=== PATIENT | male | born 1995 | race American Indian/Alaskan Native ===

== ENCOUNTER 2019-10-26 04:16 | Emergency (ER) | payer SELFPAY ==
[2019-10-26 05:14] LABS: Basophils # (Auto) 0.1 K/mm3 (0.0-0.1); Basophils % (Auto) 0.8 % (0.0-1.8); Eosinophils % (Auto) 0.6 % (0.0-4.3); Hemoglobin 13.6 gm/dl (11.8-15.2); Lymphocytes # (Auto) 0.4 K/mm3 (1.2-5.4); Lymphocytes % (Auto) 6.9 % (13.4-35.0); Mean Corpuscular HGB Conc 33 % (32-34); Mean Corpuscular Volume 87 fl (84-94); Monocytes # (Auto) 0.6 K/mm3 (0.0-0.8); Monocytes % (Auto) 10.1 % (0.0-7.3); Platelet Count 207 K/mm3 (140-440); Red Blood Count 4.72 M/mm3 (3.65-5.03); Red Cell Distribution Width 13.7 % (13.2-15.2)
[2019-10-26] MEDS ORDERED: KETOROLAC 30 MG/1 ML INJ IM ONE (05:23)
[2019-10-26] MEDS ORDERED: FAMOTIDINE 20 MG TAB PO ONE (05:23)
[2019-10-26] MEDS ORDERED: BUTALB/ACETAMINOPHEN/CAFFEINE TAB PO ONE (05:23)
[2019-10-26] MEDS ORDERED: ONDANSETRON 4 MG ODT TAB PO ONE (05:23)
[2019-10-26 05:26] LABS: Alanine Aminotransferase 26 units/L (7-56); Albumin 4.9 g/dL (3.9-5); BUN/Creatinine Ratio 8; Blood Urea Nitrogen 8 mg/dL (9-20); Calcium 9.3 mg/dL (8.4-10.2); Hemolysis Index 13
[2019-10-26 05:38] LABS: Bilirubin,Urine NEG (Negative); Blood,Urine NEG (Negative); Color,Urine Yellow (Yellow); Mucus,Urine FEW /HPF; Protein,Urine <15 mg/dL mg/dL (Negative); Urobilinogen,Urine < 2.0 mg/dL (<2.0)
--- NOTE | 2019-10-26 06:34 | Emergency Department Report ---
ED N/V/D HPI - General Chief complaint: Abdominal Pain Stated complaint: HEADACHE, BODY PAIN, ABD PAIN Source: patient, family Mode of arrival: Ambulatory Limitations: No Limitations - History of Present Illness Initial comments: Patient is a 24-year-old -[place] male with no past medical history presents to the ED with acute onset persistent intermittent nausea and vomiting, mild epigastric discomfort, persistent headache and diffuse body aches and pains for the last 4 hours. Patient states that the last meal he ate was over 10 hours ago and that it was a sandwich at a grocery store. Patient denies fever, chills, diarrhea dizziness, sore throat, nasal and sinus congestion, chest pain or shortness of breath, dysuria or urinary frequency and urgency. MD complaint: nausea, vomiting, abdominal pain (epigastric discomfort), other (headache; body aches) -: Sudden, hour(s) (4) Description of Vomiting: food contents, watery, bilious Associated Abdominal Pain: Yes (mild epigastric discomfort) Location: epigastric Radiation: none Pain Scale: 5 Quality: aching, dull Consistency: intermittent Improves with: none Worsens with: vomiting Context: possible food poisoning Associated Symptoms: denies other symptoms, myalgias, headaches, loss of appetite, malaise, nausea/vomiting. denies: chest pain, cough, diaphoresis, fever/chills, rash, dysuria, shortness of breath, syncope, weakness - Related Data Previous Rx's Medication Instructions Recorded Last Taken Type Butalb/Acetamin/Caff 50-325-40 1 - 2 tab PO Q6HR PRN #15 tab 10/26/19 Unknown Rx [Fioricet 50-325-40] Dicyclomine [Bentyl] 20 mg PO Q6H PRN #24 tablet 10/26/19 Unknown Rx Famotidine [Pepcid] 20 mg PO Q12H #30 tablet 10/26/19 Unknown Rx Ondansetron [Zofran Odt] 4 mg PO Q6HR PRN #20 tab.rapdis 10/26/19 Unknown Rx Allergies Allergy/AdvReac Type Severity Reaction Status Date / Time No Known Allergies Allergy Unverified 10/26/19 04:41 ED Review of Systems ROS: Stated complaint: HEADACHE, BODY PAIN, ABD PAIN Other details as noted in HPI Constitutional: denies: chills, fever Eyes: denies: eye pain, eye discharge, vision change ENT: denies: ear pain, throat pain Respiratory: denies: cough, shortness of breath, wheezing Cardiovascular: denies: chest pain, palpitations Endocrine: no symptoms reported Gastrointestinal: abdominal pain, nausea, vomiting. denies: diarrhea Genitourinary: denies: urgency, dysuria Musculoskeletal: arthralgia, myalgia. denies: back pain, joint swelling Skin: denies: rash, lesions Neurological: headache. denies: weakness, paresthesias Psychiatric: denies: anxiety, depression Hematological/Lymphatic: denies: easy bleeding, easy bruising ED Past Medical Hx - Past Medical History Previous Medical History?: No - Surgical History Past Surgical History?: No - Social History Smoking Status: Never Smoker Substance Use Type: None - Medications Home Medications: Home Medications Medication Instructions Recorded Confirmed Last Taken Type Butalb/Acetamin/Caff 50-325-40 1 - 2 tab PO Q6HR PRN #15 tab 10/26/19 Unknown Rx [Fioricet 50-325-40] Dicyclomine [Bentyl] 20 mg PO Q6H PRN #24 tablet 10/26/19 Unknown Rx Famotidine [Pepcid] 20 mg PO Q12H #30 tablet 10/26/19 Unknown Rx Ondansetron [Zofran Odt] 4 mg PO Q6HR PRN #20 tab.rapdis 10/26/19 Unknown Rx ED Physical Exam - General Limitations: No Limitations General appearance: alert, in no apparent distress - Head Head exam: Present: atraumatic, normocephalic, normal inspection - Eye Eye exam: Present: normal appearance, PERRL, EOMI Pupils: Present: normal accommodation - ENT ENT exam: Present: normal exam, normal orophraynx, mucous membranes moist, TM's normal bilaterally, normal external ear exam - Neck Neck exam: Present: normal inspection, full ROM. Absent: tenderness, lymphadenopathy - Respiratory Respiratory exam: Present: normal lung sounds bilaterally. Absent: respiratory distress, wheezes, rales, rhonchi, stridor, chest wall tenderness, accessory muscle use - Cardiovascular Cardiovascular Exam: Present: regular rate, normal rhythm, normal heart sounds. Absent: systolic murmur, diastolic murmur, rubs, gallop - GI/Abdominal GI/Abdominal exam: Present: soft, normal bowel sounds. Absent: tenderness, guarding, rebound, hyperactive bowel sounds, hypoactive bowel sounds, orga nomegaly - Extremities Exam Extremities exam: Present: normal inspection, full ROM, normal capillary refill - Back Exam Back exam: Present: normal inspection, full ROM. Absent: tenderness, CVA tenderness (R), CVA tenderness (L), muscle spasm, paraspinal tenderness, vertebral tenderness - Neurological Exam Neurological exam: Present: alert, oriented X3, CN II-XII intact, normal gait, reflexes normal - Psychiatric Psychiatric exam: Present: normal affect, normal mood - Skin Skin exam: Present: warm, dry, intact, normal color. Absent: rash ED Medical Decision Making - Lab Data Result diagrams: 10/26/19 04:48 10/26/19 04:48 - Medical Decision Making This is a 24-year-old male presented to the ED with nausea and vomiting with mild epigastric discomfort, persistent headache and diffuse body aches and pains for 4 hours after eating contaminated food and hours ago. In the ED, patient is alert and oriented 3 and is not in distress with normal vital signs. Patient was treated for nausea and vomiting and also given antacids and pain medications. Lab test results were reviewed and are nonactionable. On reevaluation, patient's headache resolved as well as nausea and vomiting. Patient will discharged home on medications and advised to follow-up with his primary care physician in 7-10 days for reevaluation. Meanwhile the patient was advised to maintain a clear liquid diet for 12-24 hours and return to the ED immediately if symptoms get worse. - Differential Diagnosis Viral gastroenteritis; GERD; URI; Gastritis Critical care attestation.: If time is entered above; I have spent that time in minutes in the direct care of this critically ill patient, excluding procedure time. ED Disposition Clinical Impression: Viral gastroenteritis, Nausea and vomiting in adult Tension type headache Qualifiers: Headache chronicity pattern: acute headache Intractability: not intractable Qualified Code(s): G44.209 - Tension-type headache, unspecified, not intractable Disposition: DC-01 TO HOME OR SELFCARE Is pt being admited?: No Does the pt Need Aspirin: No Condition: Stable Instructions: Acute Nausea and Vomiting (ED), Acute Headache (ED), Gastroenteritis (ED), Gastroesophageal Reflux Disease (ED) Additional Instructions: Maintain a clear liquid diet for 12-24 hours, take medication with food, drink plenty of fluids and follow-up with your primary care physician in 5-7 days for reevaluation. Return to the ED immediately if symptoms get worse. Prescriptions: Dicyclomine [Bentyl] 20 mg PO Q6H PRN #24 tablet PRN Reason: Pain , Severe (7-10) Butalb/Acetamin/Caff 50-325-40 [Fioricet 50-325-40] 1 - 2 tab PO Q6HR PRN #15 tab PRN Reason: Headache Famotidine [Pepcid] 20 mg PO Q12H #30 tablet Ondansetron [Zofran Odt] 4 mg PO Q6HR PRN #20 tab.rapdis PRN Reason: Nausea Referrals: PRIMARY CARE, [Primary Care Provider] - 3-5 Days Forms: Work/School Release Form(ED) Time of Disposition: 06:40 Print Language: ARMENIAN
== END 2019-10-26 06:56 | disposition home or self-care (01) ==
LOC: ED 04:16
DX: G44.209 Tension-type headache, unspecified, not intractable (principal); A08.4 Viral intestinal infection, unspecified; Z79.899 Other long term (current) drug therapy
CPT/HCPCS: 36415; 80053; 81001; 83690; 85025; 96372; 99283; J1885; Q0162